=== PATIENT | female | born 1985 | race Caucasian/White ===

== ENCOUNTER 2022-09-12 17:46 | Emergency (ER) | payer BC, SELFPAY ==
[2022-09-12 17:52] VITALS: BP 151/98; PULSE 71; RESP 18; TEMP 36.8; O2SAT 99; BMI 29.5
--- NOTE | 2022-09-12 18:13 | CRLHL7_ITS ---
For Patients: As a result of the Cures Act, medical imaging exams and procedure reports are released immediately into your electronic medical record. You may view this report before your referring provider. If you have questions, please contact your health care provider. INDICATION: Shortness of breath TECHNIQUE: Chest 2 views. COMPARISON: Chest x-ray 03/15/2021 FINDINGS: The heart is normal in size. The pulmonary vasculature is within normal limits. The lungs are clear without focal consolidation, pleural effusion or pneumothorax. The bones are unremarkable. IMPRESSION: No acute process. Dictated by Oksana Gonzalez MD @ 09/12/2022 7:14:52 PM Dictated by: Oksana Gonzalez MD @ 09/12/2022 19:15:00 (Electronically Signed)
[2022-09-12 18:38] LABS: Basophils Absolute Auto 0.04 K/uL (0.00-0.30); Basophils Percent Auto 0.5 % (0.0-3.0); Eosinophils Absolute Auto 0.17 K/uL (0.00-0.50); Eosinophils Percent Auto 1.9 % (0.0-7.0); Hematocrit 37.3 % (33.0-51.0); Hemoglobin* 11.8 gm/dL (12.0-16.0); Immature Granulocytes Abs Auto 0.02 K/uL (0.00-0.30); Immature Granulocytes Pct Auto 0.2 %; Lymphocytes Percent Auto 19.8 % (20-44); Mean Corpuscular HGB Conc 32 gm/dL (32-36); Mean Corpuscular Hemoglobin 26 pg (26-34); Mean Corpuscular Volume 82 fL (80-100); Monocytes Percent Auto 5.9 % (0.0-11.0); Neutrophils Absolute Auto 6.29 K/uL (1.7-7.0); Neutrophils Percent Auto 71.7 % (42.0-72.0); Platelet Count* 354 K/uL (140-440); RDW Coefficient of Variation % 13.8 % (11.5-15.5); Red Blood Count 4.54 m/uL (4.00-5.20); White Blood Count* 8.78 K/uL (4.50-11.00)
[2022-09-12 18:39] LABS: Slide Review Reflex No
[2022-09-12 18:40] LABS: HCG Qualitative* Negative (Negative)
[2022-09-12] MEDS: METHYLPREDNISOLONE SOD SUCC 40 MG/ML IVP (18:43)
[2022-09-12] MEDS: ONDANSETRON 2 MG/ML inj 4 MG IVP (18:43)
[2022-09-12] MEDS: diphenhydrAMINE 50 MG/ML inj 25 MG IVP (18:43)
[2022-09-12] MEDS: KETOROLAC 30 MG/ML inj IVP (18:43)
[2022-09-12 18:54] LABS: Chloride* 105 mmol/L (96-114); Potassium* 3.8 mmol/L (3.6-5.1); Sodium* 137 mmol/L (135-149)
--- NOTE | 2022-09-12 18:54 | ED.GENADULT ---
HPI - General Adult General Chief complaint: Headache/Migraine Stated complaint: Chest Pain/Migraine Time Seen by Provider: 09/12/22 17:50 Source: patient Mode of arrival: ambulatory Limitations: no limitations History of Present Illness HPI narrative: 37-year-old female coming in today several concerns. 1. She has a migraine headache. She has had it for 5 days now. She did go to the clinic yesterday she was treated with IM Toradol. She states that the Tylenol she took today did help some however the headache as back. Located across the forehead into the left judaism. This is not new for her. This is clearly different from the stone aside from the fact that it is lasting little longer than usual. She has no other headache medications at home. 2. She is also concerned about chest pain that developed in the middle of the night. Pain is located across the entire chest. It comes and goes. Laying back or lying on her side makes it worse. Sitting up makes it better. She is not short of breath. She denies any coughing. No fevers or chills. She states that she did have cold symptoms last week but those have resolved. She denies any recent traveling. No surgery. She has no history of blood clots. Related Data Previous Rx's Medication Instructions Recorded sumatriptan succinate 50 mg tablet See Rx Instructions PO .COMPLEX #9 09/11/22 (Imitrex) tabs Allergies Allergy/AdvReac Type Severity Reaction Status Date / Time No Known Drug Allergies Allergy Verified 09/11/22 10:37 Review of Systems Status of ROS: Reports: 10 or more systems reviewed and unremarkable except as noted in History and below PFSH PFS Social History Smoking Status: Never smoker How often do you have a drink containing alcohol: monthly or less AUDIT-C Alcohol total score: 1 Non-prescribed substance use: denies use Exam Narrative: Exam Narrative: Well-nourished well-developed patient in no acute distress. Alert and oriented. Answers questions appropriately. Mood and affect are appropriate. Thoughts are goal oriented and rational. No tangential or magical thinking noted. Patient speaks in full sentences without needing to catch their breath. HEENT: Normocephalic atraumatic. Pupils are equally round reactive to light. Extraocular muscles are intact. Conjunctivae are moist without any icterus noted. Moist mucous membranes. Posterior pharynx is normal. Neck is soft without any lymphadenopathy or thyromegaly. No masses are appreciated. Cardiovascular: Heart is regular rate and rhythm S1 and S2 are present without any murmurs. Lungs: Clear to auscultation bilaterally no wheezes rhonchi or rales are appreciated. Patient takes deep breaths without any discomfort. Patient has some tenderness along the left sternal border with palpation. Nothing on the right side. Abdomen: Soft and nontender nondistended with normal bowel sounds. No guarding or rebound. No masses or organomegaly appreciated. Extremities: Bilateral lower extremities are without edema. Normal DP and PT pulses. Skin: Well perfused without any obvious rashes. Const: Vital Signs, click to edit/add: Vital Signs - 24 hr 09/12/22 17:52 Temperature 98.2 F Pulse Rate [Pulse Oximeter] 71 Respiratory Rate 18 Blood Pressure [Ri ght Upper Arm] 151/98 H Pulse Oximetry 99 Oxygen Delivery Me thod Room Air Course Course Hospital Course: IV was established and labs were drawn EKG, read by me, shows normal sinus rhythm. Chest x-ray, read by me, does not show any acute abnormalities. Labs were unremarkable. Her D-dimer was just minimally elevated at 0.52, however given that she has no risk factors for blood clot including the use of hormonal control, I do not think that the risks of a chest CT would outweigh the benefits at this time. She received IV Toradol, Benadryl, Zofran and Solu-Medrol. At re-evaluation she was symptom free. Vital Signs Vital signs: Initial Vital Signs Temperature 98.2 F 09/12/22 17:52 Temperature Source Temporal Artery Scan 09/12/22 17:52 Pulse Rate 71 09/12/22 17:52 Respiratory Rate 18 09/12/22 17:52 Blood Pressure 151/98 H 09/12/22 17:52 Blood Pressure Mean 115 09/12/22 17:52 Blood Pressure Position Supine 09/12/22 17:52 Pulse Oximetry 99 09/12/22 17:52 Oxygen Delivery Method 09/12/22 17:52 Vital Signs Temperature 98.2 F 09/12/22 17:52 Pulse Rate 71 09/12/22 17:52 Respiratory Rate 18 09/12/22 17:52 Blood Pressure 151/98 H 02/04/23 17:52 Pulse Oximetry 99 09/12/22 17:52 Oxygen Delivery Method 09/12/22 17:52 Temperature 98.2 F 09/12/22 17:52 Pulse Rate 71 09/12/22 17:52 Respiratory Rate 18 09/12/22 17:52 Blood Pressure 151/98 H 09/12/22 17:52 Pulse Oximetry 99 09/12/22 17:52 Oxygen Delivery Method 09/12/22 17:52 Medical Decision Making MDM Narrative Medical decision making narrative: 29-year-old female migraine headaches improved with treatment. Also complaining of chest pain. We discussed potential causes including costochondritis, pleurisy and chest wall pain, which are the 3 most likely diagnoses at this time. Did consider more life-threatening diagnoses including coronary artery disease, PE, pneumothorax, pneumonia, myocarditis. At this time recommend NSAID use and heat to the chest wall. Certainly return to the ER if things worsen or not improving. Patient felt comfortable with this plan had no other questions. Lab Data Lab results reviewed: Yes I reviewed the patient's lab results Labs: Lab Results 09/12/22 09/12/22 09/12/22 Range/Units 18:24 18:24 18:24 WBC 8.78 (4.50-11.00) K/uL RBC 4.54 (4.00-5.20) m/uL Hgb 11.8 L (12.0-16.0) gm/dL Hct 37.3 (33.0-51.0) % MCV 82 (80-100) fL MCH 26 (26-34) pg MCHC 32 (32-36) gm/dL RDW Coeff of Dean 13.8 (11.5-15.5) % Plt Count 354 (140-440) K/uL Neut % (Auto) 71.7 (42.0-72.0) % Lymph % (Auto) 19.8 L (20-44) % Letcher % (Auto) 5.9 (0.0-11.0) % Eos % (Auto) 1.9 (0.0-7.0) % Baso % (Auto) 0.5 (0.0-3.0) % Neut # (Auto) 6.29 (1.7-7.0) K/uL Lymph # (Auto) 1.70 (0.90-2.90) K/uL Letcher # (Auto) 0.50 (0.00-0.90) K/UL Eos # (Auto) 0.17 (0.00-0.50) K/uL Baso # (Auto) 0.04 (0.00-0.30) K/uL D-Dimer Quant (PE/DVT) 0.52 H (0.00-0.50) ug/ml Sodium (135-149) mmol/L Potassium (3.6-5.1) mmol/L Chloride (96-114) mmol/L Carbon Dioxide (20-32) mmol/L BUN (5-24) mg/dL Creatinine (0.5-1.5) mg/dL Estimated Creat Clear Estimated GFR ml/min Glucose (60-115) mg/dL Lactate (0.5-1.9) mmol/L Calcium (8.4-10.6) mg/dL Troponin I (0.01-0.04) ng/mL C-Reactive Protein (0.5-1.0) mg/dL HCG, Qual Negative (Negative) 09/12/22 09/12/22 Range/Units 18:24 18:24 WBC (4.50-11.00) K/uL RBC (4.00-5.20) m/uL Hgb (12.0-16.0) gm/dL Hct (33.0-51.0) % MCV (80-100) fL MCH (26-34) pg MCHC (32-36) gm/dL RDW Coeff of Dean (11.5-15.5) % Plt Count (140-440) K/uL Neut % (Auto) (42.0-72.0) % Lymph % (Auto) (20-44) % Letcher % (Auto) (0.0-11.0) % Eos % (Auto) (0.0-7.0) % Baso % (Auto) (0.0-3.0) % Neut # (Auto) (1.7-7.0) K/uL Lymph # (Auto) (0.90-2.90) K/uL Letcher # (Auto) (0.00-0.90) K/UL Eos # (Auto) (0.00-0.50) K/uL Baso # (Auto) (0.00-0.30) K/uL D-Dimer Quant (PE/DVT) (0.00-0.50) ug/ml Sodium 137 (135-149) mmol/L Potassium 3.8 (3.6-5.1) mmol/L Chloride 105 (96-114) mmol/L Carbon Dioxide 26 (20-32) mmol/L BUN 18 (5-24) mg/dL Creatinine 0.6 (0.5-1.5) mg/dL Estimated Creat Clear 132.86 Estimated GFR 118 ml/min Glucose 124 H (60-115) mg/dL Lactate 1.0 (0.5-1.9) mmol/L Calcium 9.2 (8.4-10.6) mg/dL Troponin I < 0.01 L (0.01-0.04) ng/mL C-Reactive Protein < 0.5 L (0.5-1.0) mg/dL HCG, Qual (Negative) Imaging Data Chest x-ray: Attestation: I have reviewed the pertinent imaging results. Radiologist's impression: Chest 2 views. COMPARISON: Chest x-ray 03/15/2021 FINDINGS: The heart is normal in size. The pulmonary vasculature is within normal limits. The lungs are clear without focal consolidation, pleural effusion or pneumothorax. The bones are unremarkable. IMPRESSION: No acute process. ECG Data Attestation: I personally reviewed and interpreted this ECG as follows: Discharge Plan Discharge Clinical Impression: Headache, migraine, Chest pain Patient Disposition: Home, Self-Care Condition: Improved Additional Instructions: Start taking ibuprofen 600 mg every 8 hours, with meals, for the next 3-5 days. Okay to use heat to the chest wall as needed for comfort, do not apply heat directly to skin. If your symptoms worsen, instead of get better, over the next 1-3 days, return to the ER. Prescriptions: No Action sumatriptan succinate [Imitrex] 50 mg tablet See Rx Instructions PO .COMPLEX Qty: 9 0RF Rx Instructions: take 1 tab at onset of headache; if no relief may repeat 1 tab after at least 2 hrs; max = 4 tabs/24 hr PO Follow Up/Referrals: Olga Arora, BRYNC [Primary Care Provider] - [facility]
[2022-09-12 18:57] LABS: Blood Urea Nitrogen* 18 mg/dL (5-24); Carbon Dioxide* 26 mmol/L (20-32); Creatinine* 0.6 mg/dL (0.5-1.5); Est. Creatinine Clearance* 132.86; Estimated Glomerular Filt Rate 118 ml/min
[2022-09-12 18:58] LABS: Calcium* 9.2 mg/dL (8.4-10.6); D Dimer Quantitative* 0.52 ug/ml (0.00-0.50); Glucose* 124 mg/dL (60-115)
[2022-09-12 19:03] LABS: C Reactive Protein* < 0.5 mg/dL (0.5-1.0)
[2022-09-12 19:10] LABS: Troponin I* < 0.01 ng/mL (0.01-0.04)
== END 2022-09-12 19:40 | disposition home or self-care (01) ==
PROVIDERS: Emergency Provider Family Medicine; PCP Physician Assistant Medical
DX: G43.909 Migraine, unspecified, not intractable, without status migrainosus (principal); R07.9 Chest pain, unspecified
CPT/HCPCS: 36415; 71046; 80048; 83605; 84484; 84703; 85025; 85379; 86140; 93005; 96374; 96375; 99284; 99285; J1200; J1885; J2405; J2920

== ENCOUNTER 2025-07-13 21:31 | Emergency (ER) | payer BC, MEDICAID, SELFPAY ==
[2025-07-13] VITALS (13 sets, daily range): BP systolic 143–173; BP diastolic 98–110; PULSE 78–93; RESP 14–22; TEMP 37.2; O2SAT 97–98; BMI 32.0
--- OUTSIDE RECORDS SUMMARY | 2025-07-13 21:33 | XMS_ITS | Clinical Summary ---
Author Organization [facility] Address [address] [place] [id number] Care Team Providers Care Blunger Name Role Phone Olga Arora PA-C Primary Care Provider [phone] Allergies Active Allergy Reactions Criticality Noted Date Comments Seasonal Allergies Low 05/08/2020 Other reaction(s): sneezing, Medications VIT #91/FE FUM/FA/DHA ( + DHA ORAL) [ VIT #91/FE FUM/FA/DHA ( + DHA ORAL)] Take 1 tablet by mouth daily. 12/18/2016 Active acetaminophen (TYLENOL) 500 MG tabletIndication s:Vaginal delivery [ACETAMINOP HEN (TYLENOL) 500 MG TABLET] Take 1 tablet (500 mg total) by mouth every 6 (six) hours as needed. 40 tablet 0 06/29/2017 Active ibuprofen (ADVIL,MOTRIN) 600 MG tabletIndication s:Vaginal delivery [IBUPROFEN (ADVIL,MOTR IN) 600 MG TABLET] Take 1 tablet (600 mg total) by mouth every 6 (six) hours as needed for pain. 30 tablet 0 06/29/2017 Active Active Problems Problem Noted Date Diagnosed Date Encounter for care of lactating tyrone r 06/29/2017 Decreased movement aff ecting management of mother, antepartum Resolved Problems Problem Noted Date Diagnosed Date Resolved Date 06/28/2017 06/29/2017 Insulin dependent gestationa l diabetes mellitus (GDM), antepartum 05/07/2017 05/07/2017 Overview (02/19/2021): Starting insulin 05/07/17 IMO SNOMED LOAD SPRING 2019 [.6/./.2019 9:04 PM] Teresa Boltonirban: Encounter for supervision of other normal 04/07/2017 05/07/2017 Overview (02/19/2021): Clinic/Hospital: [facility] Partner Name: Jose Ultrasound predicts sex: girl Childrens names/ages: Chi '07, Donny '10, Marimar (5), Previous labor experiences: IOL for preeclampsia with first, normal labor with epidural for second, planned CS for placenta previa with third. Waterbirth (interest, declined, ineligible): Not eligible Level of education/occupation: High school, stay at home mom Pertinent History: GDM this and previous and placenta previa in previous pregnancies. PP contraception: Jose will get a vasectomy before baby comes Hx PPD/Depression/Anxiety: No history. Feeling low, less excited about at 32 weeks, EDPS 12 on 05/05/17 Peds provider: Dr. Ayala, [facility], will use [facility] Plans for labor pain management: Epidural, considering Childbirth refresher course to re-learn comfort measures in early labor Feeding preference: breastpump Breast pump: Ameda, ordered one 05/05/17 Car seat: has one Gestational diabetes mellitu s (GDM) affecting 04/07/2017 05/07/2017 Overview (02/19/2021): GCT: 147 04/07/17 Failed GTT Supervision of high-risk pre gnancy of young multigravida 01/15/2017 04/07/2017 Unable to hear heart t ones as reason for ultrasound scan 12/18/2016 04/07/2017 History of gestational diabe martin mellitus (GDM) in prior , currently in third trimester 12/18/2016 05/05/2017 History of placenta previa 12/18/2016 0 05/07/2017 Overview (02/19/2021): In #3. C/Section at 38 weeks due to placenta previa. 2011 Previous complicat ed by -induced hypertension in third trimester, antepartum 12/18/2016 05/07/2017 Overview (02/19/2021): Previous with preeclampsia, First , induced at 39 weeks. Immunizations Immunization Administration Dates Next Due Influenza Vaccine >6 months,quad, PF 05/05/2017 TDAP (Adacel,Boostrix) 04/07/2017 Family History Medical History Relation Comments Hypertension Maternal Grandfather Relation Status Comments Maternal Grandfather Social History Tobacco Use Types Packs/Day Years Used Date Smoking Tobacco: Never Smokeless Tobacco: Never Alcohol Use Standard Drinks/Week Comments Not Currently 0 (1 standard drink = 0.6 oz pur e alcohol) Adolescent Education Answer Date Record ed Getting School Help Needed Not on file 05/01 Comments No Sex and Gender Information Value Date Recorded Sex Assigned at Not on file Legal Sex Female 10:11 AM CDT Gender Identity Not on file Sexual Orientation Not on file Last Filed Vital Signs Vital Sign Reading Time Taken Comments Blood Pressure 138/81 11/10/2020 4:05 AM CDT Pulse 79 11/10/2020 4:05 AM CDT Temperature 36.7 C (98 F) 11/09/2020 10:30 PM CDT Respiratory Rate 16 11/10/2020 4:05 AM CDT Oxygen Saturation 99% 11/10/2020 4:05 AM CDT Inhaled Oxygen Concentration - - Weight 81.6 kg (180 lb) 11/10/2020 3:09 AM CDT Height 175.3 cm (5' 9) 06/28/2017 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
--- OUTSIDE RECORDS SUMMARY | 2025-07-13 21:34 | XMS_ITS | Clinical Summary ---
Author Organization [facility] Address [address] [place] [address] Care Team Providers Care Trustee Of Estate Name Role Phone Found, No Pcp MD Primary Care Provider Unavailab le Source Comments You are receiving this document as you are listed as the primary care provider,follow-up provider, or the patient has been referred to you for consultation.This is in compliance with the Medicare and[facility] E[facility] Incentive Program,which states Providers who transition their patient to another setting of careor provider of care or refers their patient to another provider of care shouldprovide summary care record for each transition of care or referral. NGRAIN Allergies No known active allergies Medications Fenugreek 610 MG CAPS Active MULTIPLE VITAMIN OR Active cetirizine (ZYRTEC) 10 MG tablet Take 10 mg by mouth daily. Active Social History Tobacco Use Types Packs/Day Years Used Date Smoking Tobacco: Never Smokeless Tobacco: Never Comments Unknown Sex and Gender Information Value Date Recorded Sex Assigned at Not on file Legal Sex Female 8:38 AM CDT Gender Identity Not on file Sexual Orientation Not on file Last Filed Vital Signs Vital Sign Reading Time Taken Comments Blood Pressure 134/82 12/09/2020 1:18 PM CDT Pulse 67 12/09/2020 1:18 PM CDT Temperature - - Respiratory Rate - - Oxygen Saturation - - Inhaled Oxygen Concentration - - Weight 78.6 kg (173 lb 4.8 oz) 12/09/2020 1:18 P M CDT Height 175.3 cm (5' 9) 12/09/2020 1:18 PM CDT Body Mass Index 25.59 12/09/2020 1:18 PM CDT Plan of Treatment Health Maintenance Due Date Last Done Comments Cervical Cancer Screening Due 1984 Hep C Screening (Preventive Services) 1984 Mammogram 1984 HIV Screening (Preventive Services) 2000 Adult Preventive Visit 2002 HepB Vaccine (1) 2003 HPV Vaccine (1 - 3-dose SCDM series) 2011 COVID-19 Vaccine (2 - 2024-2 6 season) 2025 03/20/2021 Influenza Vaccine (#1) 2025 8, 05/05/2017 DTaP/Tdap/Td Vaccine (2 - Tdap) 04/07/2027 04/07/2017 Zoster/Shingles Vaccine (1 o f 2) 2034 HepA Vaccine Aged Out No longer eligi ble based on patient's age to complete this topic Hib Vaccine Aged Out No longer eligi ble based on patient's age to complete this topic IPV (Polio) Vaccine Aged Out No longe r eligible based on patient's age to complete this topic MCV4 Vaccine Aged Out No longer eligi ble based on patient's age to complete this topic Meningococcal B Vaccine Aged Out No l onger eligible based on patient's age to complete this topic Pneumococcal Vaccine Aged Out No long er eligible based on patient's age to complete this topic [place] [address] [place] [address] FED[employer]AL Care Teams Trustee Of Estate Relationship Specialty Start Date End Date Found, No Pcp, [address] [place] [address] PCP - General 05/07/17
--- OUTSIDE RECORDS SUMMARY | 2025-07-13 21:34 | XMS_ITS | Clinical Summary ---
Author Organization [facility] Address [address] [place] [address] Care Team Providers Care Spool Tender Name Role Phone Pcp, No Primary Care Provider Unavailabl e Allergies No known active allergies Medications ondansetron (ZOFRAN ODT) [address] 1 tablet on the tongue 3 times daily if needed for nausea. 6 tablet 02/21/2015 10:33 AM CDT 5 Active Social History Tobacco Use Types Packs/Day Years Used Date Smoking Tobacco: Never Assessed Comments Unknown Sex and Gender Information Value Date Recorded Sex Assigned at Not on file Legal Sex Female 10:24 AM CDT Gender Identity Not on file Sexual Orientation Not on file Plan of Treatment Not on file Insurance [facility] Care Teams Spool Tender Relationship Specialty Start Date End Date Pcp, No . PCP - General 02/17/16
--- NOTE | 2025-07-13 21:55 | CRLHL7_ITS ---
For Patients: As a result of the Century Cures Act, medical imaging exams and procedure reports are released immediately into your electronic medical record. You may view this report before your referring provider. If you have questions, please contact your health care provider. INDICATION: Right-sided facial weakness/numbness. Headache. Concern for stroke. TECHNIQUE: CT head without contrast. COMPARISON: None. FINDINGS: No acute intracranial hemorrhage. No CT evidence of acute territorial infarct. No hydrocephalus or midline shift. Normal cerebral parenchymal volume. Visualized paranasal sinuses and mastoid air cells are well ventilated. No acute calvarial fracture. IMPRESSION: No acute intracranial abnormality. Above findings relayed to provider Dr. Izquierdo by Dr. Ventura on 07/13/2025 at 10:12 p.m. STRANNER. Please note that all CT scans at this facility use dose modulation, iterative reconstruction, and/or weight-based dosing when appropriate to reduce radiation dose to as low as reasonably achievable. Dictated by Jos Ventura MD @ 07/13/2025 10:15:09 PM (Electronically Signed)
--- NOTE | 2025-07-13 21:56 | ED.HA ---
HPI - Headache General Date Seen: 07/13/25 Chief Complaint: Headache/Migraine Stated Complaint: paralysis, numbness on the right side of face Time Seen by Provider: 07/13/25 21:55 Source: patient Mode of arrival: ambulatory Limitations: no limitations History of Present Illness HPI Narrative: Patient is a very pleasant 39-year-old female with history of gestational diabetes, preeclampsia with resolution of hypertension and known current medications who comes to the emergency room for 4 days of right-sided headache now with facial drooping. Patient notes that she had headache on the right side of her head controlled with ibuprofen or Tylenol for the last 4 days. It has now worsened and she noticed a weakness and numbness on the right side of her face. She has not noticed any lesions in her ear on her face. She notes her whole body feels somewhat numb. She has not had any vomiting nausea abdominal pain diarrhea. She denies chest pain or difficulty breathing. She has never felt like this before. Denies a sore throat. When I ask about numbness on the tongue she states that it is cross her tongue it does cross the midline to the left side. She does have decreased hearing that she describes a slightly muffled on the right. Related Data Previous Rx's ?Medication ?Instructions ?Recorded prednisone 10 mg tablet 30 mg (3 x 10 mg) PO BID 7 days 07/13/25 #42 tabs valacyclovir 1 gram tablet 1,000 mg PO TID #20 tabs 07/13/25 (Valtrex) Allergies Allergy/AdvReac Type Severity Reaction Status Date / Time No Known Drug Allergies Allergy Verified 10/13/22 16:11 Review of Systems Status of ROS: Reports: 10 or more systems reviewed and unremarkable except as noted in History and below Const: Denies: fever, chills or fatigue Eyes: Denies: change in vision or blurry vision ENMT: Denies: throat pain, neck pain, throat swelling or nasal congestion Cardio: Denies: chest pain, swelling of feet/ankles, lightheadedness or shortness of breath with exertion Resp: Denies: shortness of breath or cough GI: Denies: abdominal pain, nausea, vomiting or diarrhea : Denies: painful urination Musculo: Denies: back pain, neck pain or extremity pain Integ/Breast: Denies: rash or redness Neuro: Reports: headache and numbness in extremities; Denies: lack of coordination, confusion, slurred speech, difficulty communicating thoughts or seizure-like activity Endo: Denies: fatigue Allergy/Immuno: Denies: throat swelling PFSH PFSH Social History Smoking Status: Never smoker How often do you have a drink containing alcohol: monthly or less AUDIT-C Alcohol total score: 1 Non-prescribed substance use: denies use Exam Narrative: Exam Narrative: Alert and oriented very pleasant. Mentation and speech is normal. No slurring of speech. EOM is full. Pupils are equal round. Heart with regular rate and rhythm and lungs are clear. Abdomen soft. Moving all extremities. Eyebrow raise with the deficit of raising of the right eyebrow. Droop of the right eye lid is slight. Able to close eyes but certainly weaker as I try to open up both eyelids. Smile is present and really no loss of nasal labial fold. Tongue is midline. Neck is supple. Symmetrical sensation with touch on both sides of the face. Examination of TMs within normal limits. No evidence of lesions in right ear canal. Cranial nerve 11 intact Upper extremity strength and motor intact. No evidence of field cut. Const: Vital Signs, click to edit/add: Vital Signs - 24 hr 07/13/25 21:43 Temperature 99.0 F Pulse Rate [Right Pulse Oximeter] 93 Respiratory Rate 18 Blood Pressure [Ri ght Upper Arm] 173/98 H Pulse Oximetry 98 Oxygen Delivery Me thod Room Air Documenting provider has reviewed patient's vital signs: yes Course Course ED Course: Nursing staff alerted me to this patient after triage. Four days of headache and now facial numbness and whole body sensations triggered a stroke code and a stat head CT was ordered. I did briefly see patient prior to going over to CT and she was protecting her airway and mentating normally. When she returned I was able to do further exam. Differential diagnosis was stroke, atypical migraine, Reza's palsy. 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 Head CT was read as normal. Will ask neurology for their opinion at this time given the 4 days of headache. Reevaluation(s) Reevaluation #1: No evidence of field cut. Patient appears to be intact bilaterally. Tongue is midline. No loss of coordination or strength in the extremities. Consultations Consultation #1: I had the pleasure of consult with Dr. Culp neurology. She does agree patient has some atypical features but feels strongly that this is a 7th nerve palsy and most likely represents Reza's palsy. Vital Signs Vital signs: Initial Vital Signs Temperature 99.0 F 07/13/25 21:43 Temperature Source Temporal Artery Scan 07/13/25 21:43 Pulse Rate 93 07/13/25 21:43 Respiratory Rate 18 07/13/25 21:43 Blood Pressure 173/98 H 07/13/25 21:43 Blood Pressure Mean 123 H 07/13/25 21:43 Blood Pressure Position Sitting 07/13/25 21:43 Pulse Oximetry 98 07/13/25 21:43 Oxygen Delivery Method Room Air 07/13/25 21:43 Vital Signs Temperature 99.0 F 07/13/25 21:43 Pulse Rate 93 07/13/25 21:43 Respiratory Rate 18 07/13/25 21:43 Blood Pressure 173/98 H 07/13/25 21:43 Pulse Oximetry 98 07/13/25 21:43 Oxygen Delivery Method Room Air 07/13/25 21:43 Temperature 99.0 F 07/13/25 21:43 Pulse Rate 93 07/13/25 21:43 Respiratory Rate 18 07/13/25 21:43 Blood Pressure 173/98 H 07/13/25 21:43 Pulse Oximetry 98 07/13/25 21:43 Oxygen Delivery Method Room Air 07/13/25 21:43 MDM - Headache MDM Narrative Medical decision making narrative: 1. Reza's palsy-we were able to obtain Neurology consult with Dr. Culp given the fact that this patient had some atypical features of Reza's palsy. Fortunately head CT was negative and she is now diagnosed with Reza's palsy and not stroke. Will treat with Valtrex 1 g p.o. t.i.d.. First dose given tonight. Prednisone 30 mg b.i.d. 1st dose given tonight as well. Remainder prescription sent to her pharmacy. I would like her to obtain some eyedrops such as refresh or even a new bottle of Vaseline/petroleum that she may use to make sure her eye stays moist. She will follow-up with her primary MD next week. I did tell her that she may have somewhat worsening symptoms but hopefully this is the worst that it that her Reza's palsy will get and that she should see gradual improvement over the next 6-8 weeks. 2. Disposition-home at this time. Return for worsening symptoms and as needed. Medical Records Attestation: I reviewed the patient's medical records. Imaging Data CT scan - head: Attestation: I have reviewed the pertinent imaging results. My impression: By my read no evidence of intracranial bleed. Radiologist's impression: No acute intracranial hemorrhage. No CT evidence of acute territorial infarct. No hydrocephalus or midline shift. Normal cerebral parenchymal volume. Visualized paranasal sinuses and mastoid air cells are well ventilated. No acute calvarial fracture. IMPRESSION: No acute intracranial abnormality. Discharge Plan Discharge Clinical Impression: Reza's palsy Patient Disposition: Home, Self-Care Condition: Unchanged Instructions: Reza Palsy (ED) Additional Instructions: Start antiviral called Valtrex as well as steroids for treatment of Reza's palsy. Your 1st doses will be given in the ED. further medications have been sent to your pharmacy. Most importantly you will need to use lubricating eyedrops especially before going to bed to prevent her eye from drying out. Follow-up with your primary MD next week for a recheck. Prescriptions: New prednisone 10 mg tablet 30 mg PO BID 7 Days Qty: 42 0RF valacyclovir [Valtrex] 1 gram tablet 1,000 mg PO TID Qty: 20 0RF Follow Up/Referrals: Provider,Not a Local [Non-Staff, Family Practice] Stand Alone Forms: [employer] Info Instructions
[2025-07-13] MEDS: VALACYCLOVIR HCL 500 MG TABLET 1000 MG PO (23:34)
--- NOTE | 2025-07-14 00:03 | PC.NURSE ---
stroke code cancelled at [address] Stephenson and Dr Alexander
== END 2025-07-13 23:40 | disposition home or self-care (01) ==
PROVIDERS: Emergency Provider Family Medicine; PCP Physician Assistant Medical
DX: G51.0 Bell's palsy (principal)
CPT/HCPCS: 70450; 99284; A9270; J7512